=== PATIENT | female | born 1945 | race American Indian/Alaskan Native ===

== ENCOUNTER 2017-01-26 09:34 | Emergency (ER) | payer MEDICAID, MEDICARE ==
[2017-01-26 09:53] VITALS: BP 177/77
--- NOTE | 2017-01-26 10:17 | Emergency Department Report ---
HPI - General Chief Complaint: Medical Clearance Time Seen by Provider: 01/26/17 10:12 - HPI HPI: 71-year-old -[place] female with a past medical history of diabetes2 that's noncompliant with medication as well as asthma comes in today for refill on her Advair and albuterol inhaler. He reports that she was made to the [facility] about a month ago. For noncompliance of her diseases. She denies any fever or chills no nausea no vomiting no shortness of breath no wheezing no dysuria no chest pain. Just requests a refill on her Advair Diskus 250/50 g and albuterol inhaler. ED Past Medical Hx - Past Medical History Previous Medical History?: Yes Hx Hypertension: Yes Hx Congestive Heart Failure: Yes Hx Diabetes: Yes Additional medical history: SARCOIDOSIS, back pain - Surgical History Past Surgical History?: No - Social History Smoking Status: Current Some Day Smoker Substance Use Type: Prescribed - Medications Home Medications: Home Medications Medication Instructions Recorded Confirmed Last Taken Type Ibuprofen [Motrin 800 MG tab] 800 mg PO Q8HR PRN #30 tablet 03/18/16 07/08/16 Unknown Rx Albuterol Sulfate [Proair 90 mcg IH Q4HR PRN #2 aer.pow.ba 07/08/16 Unknown Rx Respiclick] Ibuprofen [Motrin] 600 mg PO Q8H PRN #30 tablet 07/08/16 Unknown Rx Losartan/Hydrochlorothiazide 1 each PO QDAY #30 tablet 07/08/16 Unknown Rx [Losartan-Hctz 100-25 mg Tab] glipiZIDE [Glucotrol] 10 mg PO BID #60 tablet 07/08/16 Unknown Rx metFORMIN [Glucophage] 1,000 mg PO BID #60 tablet 07/08/16 Unknown Rx Furosemide [Lasix] 20 mg PO QDAY #10 tablet 07/17/16 Unknown Rx ALBUTEROL Inhaler [Proair] 2 puff IH QID PRN #1 inhalation 01/26/17 Unknown Rx Fluticasone/Salmeterol [Advair 1 puff IH BID #1 disk.w.dev 01/26/17 Unknown Rx Diskus 250-50 mcg] ED Review of Systems ROS: Stated complaint: MED REFILL/COUGH Other details as noted in HPI Physical Exam - Physical Exam Vital Signs: Vital Signs 01/26/17 09:49 Temperature 97.9 F Pulse Rate 98 H Respiratory 20 Rate Blood Pressure 177/77 O2 Sat by Pulse 95 Oximetry Physical Exam: GENERAL: Alert and oriented x3, no apparent distress, Normal Gait, atraumatic. HEAD: Head is normocephalic and a-traumatic. EYES: Extra ocular muscles are intact. Pupils are equal, round, and reactive to light and accommodation. NECK: Supple. Non edematous, No carotid bruits. No lymphadenopathy or thyromegaly. LUNGS: Symetrical with respiration, No wheezing, no rales or crackles, CTAB. HEART: S1, S2 present, regular rate and rhythm without murmur, no rubs, no gallops. ABDOMEN: No organomegaly was noted,Positive bowel sounds, soft, and non- distended. . Nontender to palpation on all Quadrants, NO CVA tenderness. EXTREMITIES/MUSCULOSKELETAL: No cyanosis, clubbing, rash, lesions or edema. Full ROM bilaterally. UE/LE Pulses 2+ bilaterally. LE and UE 5+ strength bilaterally NEUROLOGIC: No focal Deficit, Cranial nerves II through XII are grossly intact. No loss of sensation, No facial droop, PSYCHIATRIC: Mood is congruent with affect, denies suicidal or homicidal ideations. SKIN: Warm and dry, No lesions, No ulceration or induration present ED Course Vital Signs 01/26/17 09:49 Temperature 97.9 F Pulse Rate 98 H Respiratory 20 Rate Blood Pressure 177/77 O2 Sat by Pulse 95 Oximetry Critical care attestation.: If time is entered above; I have spent that time in minutes in the direct care of this critically ill patient, excluding procedure time. ED Disposition Clinical Impression: Medication refill Asthma Qualifiers: Asthma severity: unspecified severity Asthma complication type: uncomplicated Qualified Code(s): J45.909 - Unspecified asthma, uncomplicated Disposition: DISCHARGED TO HOME OR SELFCARE Is pt being admited?: No Does the pt Need Aspirin: No Condition: Stable Instructions: Asthma (ED) Additional Instructions: Take medication as prescribed we will refer you to her primary care provider for further evaluation of chronic disease management. Prescriptions: ALBUTEROL Inhaler [Proair] 2 puff IH QID PRN #1 inhalation PRN Reason: Shortness Of Breath Fluticasone/Salmeterol [Advair Diskus 250-50 mcg] 1 puff IH BID #1 disk.w.dev Referrals: PRIMARY CARE, [Primary Care Provider] - 3-5 Days
== END 2017-01-26 10:34 | disposition home or self-care (01) ==
LOC: ED 09:34
DX: Z76.0 Encounter for issue of repeat prescription (principal); J45.909 Unspecified asthma, uncomplicated; I50.9 Heart failure, unspecified; E11.9 Type 2 diabetes mellitus without complications; F17.200 Nicotine dependence, unspecified, uncomplicated
CPT/HCPCS: 99282

== ENCOUNTER 2017-02-02 07:32 | Emergency (ER) | payer MEDICAID, MEDICARE ==
[2017-02-02 08:30] LABS: Mean Corpuscular HGB Conc 30 % (30-34); Mean Corpuscular Volume 83 fl (79-97); Platelet Count 213 K/mm3 (140-440); Red Blood Count 4.98 M/mm3 (3.65-5.03); Red Cell Distribution Width 14.9 % (13.2-15.2); White Blood Count 6.3 K/mm3 (4.5-11.0)
[2017-02-02 08:41] LABS: Anion Gap 16 mmol/L; BUN/Creatinine Ratio 18.57; Blood Urea Nitrogen 13 mg/dL (7-17); Calcium 8.8 mg/dL (8.4-10.2); Carbon Dioxide 26 mmol/L (22-30); Chloride 99.7 mmol/L (98-107); Glucose 303 mg/dL (65-100); Potassium 4.8 mmol/L (3.6-5.0); Sodium 137 mmol/L (137-145)
[2017-02-02 09:11] LABS: Hematocrit 41.4 % (30.3-42.9); Hemoglobin 12.5 gm/dl (10.1-14.3); Mean Corpuscular Hemoglobin 25 pg (28-32)
--- NOTE | 2017-02-02 09:42 | XRay Report ---
ROUTINE CHEST, TWO VIEWS: HISTORY: Shortness of breath. Interstitial lung disease findings are again noted and not significantly changed since 07/08/16. The interstitial markings are prominent bilaterally with retraction of both nurys. No consolidation, pleural effusion or pneumothorax has developed. Normal heart size. Normal bony thorax. IMPRESSION: No significant change in the bilateral interstitial lung disease findings.
[2017-02-02] MEDS ORDERED: PROVENTIL IH ONE (20:26)
[2017-02-02] MEDS ORDERED: ATROVENT IH ONE (20:26)
[2017-02-02] MEDS ORDERED: DELTASONE PO ONE (20:26)
[2017-02-02] MEDS ORDERED: ZITHROMAX PO ONE (20:27)
[2017-02-02] MEDS ORDERED: TESSALON PERLES PO ONE (20:28)
--- NOTE | 2017-02-02 21:18 | Emergency Department Report ---
ED Shortness of Breath HPI - General Chief Complaint: Dyspnea/Respdistress Stated Complaint: SOB/COUGH Time Seen by Provider: 02/02/17 20:16 Source: patient, old records reviewed (last visit January 26 med refill her albuterol and Advair) Mode of arrival: Ambulatory Limitations: No Limitations - History of Present Illness Initial Comments: 71-year-old female with a past medical history CHF, diabetes, hypertension, sarcoidosis, and chronic back pain presents to the hospital, and shortness breath for "a couple of days". Pains of increased wheezing episodes of cough productive of yellow sputum. No complaints of fever. Mild 4/5 chest pain associated with coughing. Patient has chronic lower extremity edema that is slightly worse than usual. No reports of leg asymmetry, warmth, erythema, or fever. - Related Data Previous Rx's Medication Instructions Recorded Last Taken Type Ibuprofen [Motrin 800 MG tab] 800 mg PO Q8HR PRN #30 tablet 03/18/16 01/26/17 Rx Albuterol Sulfate [Proair 90 mcg IH Q4HR PRN #2 aer.pow.ba 07/08/16 01/26/17 Rx Respiclick] Losartan/Hydrochlorothiazide 1 each PO QDAY #30 tablet 07/08/16 01/26/17 Rx [Losartan-Hctz 100-25 mg Tab] glipiZIDE [Glucotrol] 10 mg PO BID #60 tablet 07/08/16 01/26/17 Rx metFORMIN [Glucophage] 1,000 mg PO BID #60 tablet 07/08/16 01/26/17 Rx Furosemide [Lasix] 20 mg PO QDAY #10 tablet 07/17/16 01/26/17 Rx ALBUTEROL Inhaler [Proair] 2 puff IH QID PRN #1 inhalation 01/26/17 01/26/17 Rx Fluticasone/Salmeterol [Advair 1 puff IH BID #1 disk.w.dev 01/26/17 01/26/17 Rx Diskus 250-50 mcg] Azithromycin [Zithromax Z-SUZAN] 1 dose PO DAILY 5 Days 02/02/17 Unknown Rx Benzonatate [Tessalon Perles] 100 mg PO Q8HR #30 capsule 02/02/17 Unknown Rx Prednisone [predniSONE 10 mg 10 mg PO .TAPER #1 tab.ds.pk 02/02/17 Unknown Rx (6-Day Pack, 21 Tabs)] Allergies Allergy/AdvReac Type Severity Reaction Status Date / Time No Known Allergies Allergy Verified 02/02/17 07:50 ED Review of Systems ROS: Stated complaint: SOB/COUGH Other details as noted in HPI Comment: All other systems reviewed and negative Other: Constitutional: No fevers chills Eyes: No eye pain visual changes or discharge ENT: No ear pain or throat pain Neck: Denies pain Respiratory: as per hpi Cardiovascular: Denies palpitations, syncope GI: Denies abdominal pain, nausea, vomiting, diarrhea : Denies dysuria Musculoskeletal: edema Skin: Denies rash, lesions, erythema Neurologic: Denies headache, numbness, weakness Psychiatric: Denies suicidal ideation, hallucinations ED Past Medical Hx - Past Medical History Hx Hypertension: Yes Hx Congestive Heart Failure: Yes Hx Diabetes: Yes Additional medical history: SARCOIDOSIS, back pain - Surgical History Past Surgical History?: No - Social History Smoking Status: Current Every Day Smoker Substance Use Type: None - Medications Home Medications: Home Medications Medication Instructions Recorded Confirmed Last Taken Type Ibuprofen [Motrin 800 MG tab] 800 mg PO Q8HR PRN #30 tablet 03/18/16 02/02/17 Rx Albuterol Sulfate [Proair 90 mcg IH Q4HR PRN #2 aer.pow.ba 07/08/16 02/02/17 Rx Respiclick] Losartan/Hydrochlorothiazide 1 each PO QDAY #30 tablet 07/08/16 02/02/17 Rx [Losartan-Hctz 100-25 mg Tab] glipiZIDE [Glucotrol] 10 mg PO BID #60 tablet 07/08/16 02/02/17 01/26/17 Rx metFORMIN [Glucophage] 1,000 mg PO BID #60 tablet 07/08/16 02/02/17 01/26/17 Rx Furosemide [Lasix] 20 mg PO QDAY #10 tablet 07/17/16 02/02/17 01/26/17 Rx ALBUTEROL Inhaler [Proair] 2 puff IH QID PRN #1 inhalation 01/26/17 02/02/17 Rx Fluticasone/Salmeterol [Advair 1 puff IH BID #1 disk.w.dev 01/26/17 02/02/17 Rx Diskus 250-50 mcg] Azithromycin [Zithromax Z-SUZAN] 1 dose PO DAILY 5 Days 02/02/17 Unknown Rx Benzonatate [Tessalon Perles] 100 mg PO Q8HR #30 capsule 02/02/17 Unknown Rx Prednisone [predniSONE 10 mg 10 mg PO .TAPER #1 tab.ds.pk 02/02/17 Unknown Rx (6-Day Pack, 21 Tabs)] ED Physical Exam - General Limitations: No Limitations - Other Other exam information: General: No limitations, patient is alert in no acute distress Head exam: Atraumatic, normocephalic Eyes exam: Normal appearance, pupils equal reactive to light, extraocular movements intact ENT: Moist mucous membrane, normal oropharynx Neck exam: Normal inspection, full range of motion Respiratory exam: Diminished breath sounds bilaterally, no tachypnea or accessory muscle use Cardiovascular: Normal rate and rhythm, normal heart sounds Abdomen: Soft, nondistended, and nontender, with normal bowel sounds, no rebound, or guarding Extremity: Full range of motion normal inspection no deformity, bilateral lower extremity edema equal, appears chronic, no calf tenderness or leg asymmetry Back: Normal Inspection, full range of motion, no tenderness Neurologic: Alert, oriented x3, cranial nerves intact, no motor or sensory deficit Psychiatric: normal affect, normal mood Skin: Warm, dry, intact ED Course Vital Signs 02/02/17 02/02/17 02/02/17 07:38 20:39 21:02 Temperature 98.0 F Pulse Rate 88 Pulse Rate [ 87 94 H Anterior Bilateral Throughout] Respiratory 19 Rate Respiratory 16 17 Rate [Anterior Bilateral Throughout] Blood Pressure 199/90 O2 Sat by Pulse 95 Oximetry - Reevaluation(s) Reevaluation #1: 02/02/17 21:43 Patient treated with duo neb, prednisone, and azithromycin by mouth in the ED 02/02/17 21:43 Reevaluation #2: 02/02/17 22:43 vitals prior to d/c: 159/52 sat 100 on room air RR 20 hr 84 02/02/17 22:44 sq insulin given for mild hyperglycemia prior to d/c ED Medical Decision Making - Lab Data Result diagrams: 02/02/17 08:07 02/02/17 08:07 Lab Results 02/02/17 02/02/17 Range/Units 08:07 08:07 WBC 6.3 (4.5-11.0) K/mm3 RBC 4.98 (3.65-5.03) M/mm3 Hgb 12.5 (10.1-14.3) gm/dl Hct 41.4 (30.3-42.9) % MCV 83 (79-97) fl MCH 25 L (28-32) pg MCHC 30 (30-34) % RDW 14.9 (13.2-15.2) % Plt Count 213 (140-440) K/mm3 Lymph % (Auto) 29.3 (13.4-35.0) % Archer % (Auto) 6.5 (0.0-7.3) % Eos % (Auto) 6.0 H (0.0-4.3) % Baso % (Auto) 1.0 (0.0-1.8) % Lymph # 1.8 (1.2-5.4) K/mm3 Archer # 0.4 (0.0-0.8) K/mm3 Eos # 0.4 (0.0-0.4) K/mm3 Baso # 0.1 (0.0-0.1) K/mm3 Seg Neutrophils % 57.2 (40.0-70.0) % Seg Neutrophils # 3.6 (1.8-7.7) K/mm3 Sodium 137 (137-145) mmol/L Potassium 4.8 (3.6-5.0) mmol/L Chloride 99.7 (98-107) mmol/L Carbon Dioxide 26 (22-30) mmol/L Anion Gap 16 mmol/L BUN 13 (7-17) mg/dL Creatinine 0.7 (0.7-1.2) mg/dL Estimated GFR > 60 ml/min BUN/Creatinine Ratio 18.57 % Glucose 303 H (65-100) mg/dL Calcium 8.8 (8.4-10.2) mg/dL Troponin T < 0.010 (0.00-0.029) ng/mL NT-Pro-B Natriuret Pep 194.3 (0-900) pg/mL - EKG Data -: EKG Interpreted by Me (sinus rate 86, pac's q wave ant) - EKG Data When compared to previous EKG there are: no significant change (compared to 07/08) - Radiology Data Radiology results: report reviewed (chest x-ray: Chronic bilateral interstitial markings no acute findings) - Medical Decision Making Plan to discharge patient home on antibiotics and steroids for bronchitis and possible sarcoidosis flare. Follow-up will be encouraged. - Differential Diagnosis bronchitis, pneumonia, CHF, asthma, COPD, sarcoidosis Critical Care Time: No Critical care attestation.: If time is entered above; I have spent that time in minutes in the direct care of this critically ill patient, excluding procedure time. ED Disposition Clinical Impression: Acute bronchitis, Sarcoidosis, Diabetes Disposition: DISCHARGED TO HOME OR SELFCARE Is pt being admited?: No Condition: Stable Instructions: Diabetes Mellitus Type 2 in Adults (ED), Acute Bronchitis (ED), Sarcoidosis (ED) Additional Instructions: Taken medication as prescribed. Follow-up with your doctor or the doctor/ clinic provided. Return if symptoms worsen. Prescriptions: Azithromycin [Zithromax Z-SUZAN] 1 dose PO DAILY 5 Days Benzonatate [Tessalon Perles] 100 mg PO Q8HR #30 capsule Prednisone [predniSONE 10 mg (6-Day Pack, 21 Tabs)] 10 mg PO .TAPER #1 tab.ds.pk Referrals: PRIMARY CARE, [Primary Care Provider] - 3-5 Days PATTY BURDEN MD [Staff Physician] - 3-5 Days Time of Disposition: 22:44
[2017-02-03 00:01] VITALS: BP 153/72
== END 2017-02-02 23:59 | disposition home or self-care (01) ==
LOC: ED 07:32
DX: J20.9 Acute bronchitis, unspecified (principal); D86.9 Sarcoidosis, unspecified; E11.9 Type 2 diabetes mellitus without complications; I10 Essential (primary) hypertension; I50.9 Heart failure, unspecified; F17.200 Nicotine dependence, unspecified, uncomplicated
CPT/HCPCS: 36415; 71020; 80048; 82962; 83880; 84484; 85025; 93005; 93010; 94640; 96372; 99284; J7512; J1815